=== PATIENT | male | born 1970 | race Caucasian/White ===

== ENCOUNTER 2016-11-19 02:23 | Emergency (ER) | payer OTHER ==
[~2016-11-19] VITALS: Ht 182.9 cm; Wt 72.7 kg
[2016-11-19 02:29] VITALS: BP 148/94; PULSE 70; RESP 18; O2SAT 95
[2016-11-19] MEDS ORDERED: Dextrose 10% 1,000 ML IV SCH (03:10)
--- NOTE | 2016-11-19 03:29 | ED.REPORT ---
HPI-Altered Mental Status Date of Service Nov 19, 2016 ED Provider: Eddie Tyler MD A 46 year old male with a history of diabetes presents to the ED via EMS with low blood sugar. He does not remember what happened. The patient's was woken up by their dog and found the patient sitting up on the floor, unresponsive, with seizure-like symptoms. Per EMS, the patient was found with altered mental status, incontinence of urine, possible seizure, and FSBG of LO (<20). He was given one amp of D50 en route and his FSBG increased to 176. The patient also has a laceration left eyebrow thought to be from GLF. The patient ate a pizza yesterday around 1500 and remembers feeling like he had low blood sugar. Nursing Notes Stated Complaint: AMS Chief Complaint: Neuro Symptoms/ Deficits Nursing Notes Reviewed: Yes Allergies: Coded Allergies: ibuprofen (Verified Adverse Reaction, Unknown, 11/19/16) only large amounts General Time Seen by MD: 03:09 Chief Complaint Other (low blood sugar) Hx Obtained From: Patient, Spouse Arrived By: Ambulance Sudden in Onset?: Yes Onset Occurred: Onset unknown (earlier this evening. ) Symptom Duration: Duration unknown Progression since Onset: Gradually improving Severity: Current: No pain currently Severity: Maximum: No pain Recent Healthcare: No recent doctor visit Similar Sx Previous: No Past Medical History Past Medical History Normally takes 20 units of novalin N per dose. He has no sliding scale. Patient needs a new meter. Reports: Diabetes mellitus (Diagnosed at age 32.) Past Surgical History none reported. Social History Patient and recently moved to [facility] and currently are looking for a doctor. The nearest appointment the patient has scheduled for April with a Dr. Moscoso. Review of Systems Review of Systems Note: low blood sugar. seizure-like symptoms. laceration to left eyebrow. unresponsiveness earlier. AMS earlier. Constitutional: Denies: Chills, Fever Complete sys rev & neg: except as marked. Male: Denies Incontinence (urine) Physical Exam Initial Vital Signs Vital Signs (First) Date Time Temp Pulse Resp B/P Pulse Ox O2 Delivery O2 Flow Rate FiO2 11/19/16 02:29 35.1 70 18 148/94 95 Room Air Initial VS: Reviewed General/Constitutional: Awake, Alert Alertness: Positive: Confused (mild confusion persists. ) Slow to respond. Head / Eyes: Normocephalic, PERRL, EOMI Patient has 1cm laceration of left lateral orbital ridge with some underlying ecchymosis and swelling. Neck: Atraumatic, Full range of motion Respiratory / Chest: Atraumatic, Breath sounds NL, Breath sounds = bilat, No respiratory distress, No rales, No rhonchi, No wheezing Cardiovascular: Heart rate NL, Regular rhythm, Heart sounds NL, No gallop, No murmurs, No rubs Neurologic: Oriented X3, Speech NL Abdomen: No guarding, No rebound Skin: Warm, Dry Upper Extremity / MS: Atraumatic, No swelling, No edema Interpretation & Diagnostics Lab Results Interpretation Result Diagram: 11/19/16 0320 11/19/16 0320 Test 11/19/16 03:20 White Blood Count 12.5th/mm3 (3.8-10.1) Red Blood Count 4.88mil/mm3 (4.40-5.80) Hemoglobin 14.8g/dL (13.8-17.2) Hematocrit 44.8% (41.0-50.0) Mean Corpuscular Volume 91.8fL (81-100) Mean Corpuscular Hemoglobin 30.3pg (27.0-35.0) Mean Corpuscular Hemoglobin Concent 33.0% (32.0-37.0) Red Cell Distribution Width 13.4% (12.3-15.4) Platelet Count 302bil/L (150-400) Neutrophils (%) (Auto) 72.9% (40-74) Lymphocytes (%) (Auto) 15.1% (14-46) Monocytes (%) (Auto) 9.3% (4-12) Eosinophils (%) (Auto) 2.2% (0-5) Basophils (%) (Auto) 0.3% (0-3) Sodium Level 139mEq/L (134-144) Potassium Level 5.2mEq/L (3.5-5.2) Chloride Level 102mEq/L (97-108) Carbon Dioxide Level 21mmol/L (18-29) Blood Urea Nitrogen 32mg/dL (6-24) Creatinine 1.58mg/dL (0.76-1.27) Estimat Glomerular Filtration Rate 50mL/min (>59) Glucose Level 86mg/dL (60-99) Calcium Level 9.5mg/dL (8.5-10.1) Total Bilirubin 0.2mg/dL (0.0-1.2) Aspartate Amino Transf (AST/SGOT) 17U/L (0-50) Alanine Aminotransferase (ALT/SGPT) 11U/L (0-44) Alkaline Phosphatase 58U/L (25-150) Total Protein 7.6g/dL (6.4-8.4) Albumin 4.1g/dL (3.4-5.0) Lab Results Interpretation: Elevated white blood count ECG Interpretation ECG Interpretation: Rate is 82. Sinus rhythm Time: 02:32 Interpreted by: ED physician (Dr. Yee) CT Head Interpretation IMPRESSION: No CT evidence of hemmorrhage, mass, or acute infarct. Signed by Charly Martínez M.D., radiologist. 11/19/2016, 0307. Interpretation / Wet Read by: Interpret - Radiologist Re-Eval/Medical Decision Med Decision/Clinical Course 46-year-old male who was found down with hypoglycemia. He had obviously by physical exam had a fall. He was treated en route with D50 and here he is sugars gradually stabilized with a D10 infusion. Head CT scan was negative. A small laceration on the left lateral orbital ridge was closed with Steri- Strips. His glucose monitor has been broken. We discussed the importance of returning his sugars. He also has been unable to get in with a physician here until April. He does have his own provider in [place] and will go there for further follow-up Source of Hx: Old records, EMS Re-Evaluation/Progress #1: Time of Eval: 03:31 Re-Evaluation/Progress Note: Explained normal head CT result. Counseled patient to try visitng the [facility]. Re-Evaluation/Progress #2: Time of Eval: 06:44 Re-Evaluation/Progress Note: Rechecked patient, explained test results, diagnosis, and plan for discharge. Patient understands and agrees with the plan. All questions addressed. Counseled Regarding: Diagnosis, Lab results, Need for follow-up, When/why to return to ED Patient Discharge & Departure Shift Change Sign-Out Patient Care Transferred: Yes Impression: Primary Impression: Hypoglycemia Disposition: Home Discharge Condition All VS Reviewed: Yes Condition: Stable Patient Instructions: Diabetic Hypoglycemia (ED) Additional Instructions: We need to monitor her sugars more closely. I have written a prescription for a new glucometer. It probably would be best for you to see your provider in [place] whilst trying to get a new provider appear. Resume your regular diabetes treatment tonight. Referrals: NOPCP (PCP) Scribe Attestation Portions of this note were transcribed by Larry Nunez. I, Dr. Tyler personally performed the history, physical exam and medical decision-making; I reviewed and confirmed the accuracy of the information in the transcribed note. Signed by: Valeria Monge, 11/19/2016 and 07. copies to: NOPCP; [facility] Eddie Tyler MD Nov 19, 2016 03:29 Larry Nunez Nov 19, 2016 03:36
[2016-11-19 03:30] LABS: BASOPHILS % (AUTO) 0.3 % (0-3); EOSINOPHILS % (AUTO) 2.2 % (0-5); MONOCYTES % (AUTO) 9.3 % (4-12); Mean Corpuscular Hemoglobin 30.3 pg (27.0-35.0); Mean Corpuscular Volume 91.8 fL (81-100); NEUTROPHILS % (AUTO) 72.9 % (40-74); Platelet Count 302 bil/L (150-400)
[2016-11-19 03:37] VITALS: BP 118/90; PULSE 80; RESP 16; O2SAT 95
[2016-11-19 05:05] VITALS: BP 115/79; PULSE 80; RESP 16; O2SAT 95
[2016-11-19 07:32] VITALS: BP 117/86; PULSE 82; RESP 15; O2SAT 94
--- NOTE | 2016-11-19 08:07 | DRSVH ---
PROCEDURE: CT BRAIN WITHOUT CONTRAST ([id number]) INDICATIONS: altered mental status TECHNIQUE: Noncontrast 4.5 mm thick angled axial sections acquired from the foramen magnum to the vertex, with c oronal reformats. COMPARISON: None. FINDINGS: Image quality: Excellent. CSF spaces: Basal cisterns are patent. No extra-axial fluid collections. Ventricles are normal in size and shape. Brain: No midline shift. No intracranial masses or hemorrhage. Amaro-white matter interface is norm al. Skull and face: Calvarium and visualized facial bones are intact, without suspicious lesions. Sinuses: Visualized sinuses and mastoids are clear. IMPRESSION: No acute intracranial abnormality is seen and no abnormality appreciated. Cause of altere d mental status is not identified. Dictated by: Rock Galloway M.D. on 11/19/2016 at 8:02 , this report corresponds to the findings o f the preliminary NSR report. Approved by: Rock Galloway M.D. on 11/19/2016 at 8:06
== END 2016-11-19 07:34 | disposition home or self-care (01) ==
LOC: EDBD 02:23 → SED 02:23
DX: E11.649 Type 2 diabetes mellitus with hypoglycemia without coma (principal); S01.112A Laceration without foreign body of left eyelid and periocular area, initial encounter; W18.30XA Fall on same level, unspecified, initial encounter; Y92.009 Unspecified place in unspecified non-institutional (private) residence as the place of occurrence of the external cause; Y93.89 Activity, other specified; Y99.8 Other external cause status; Z79.4 Long term (current) use of insulin; Z88.6 Allergy status to analgesic agent